=== PATIENT | male | born 1945 | race African-American/Black ===

== ENCOUNTER 2022-06-08 18:55 | Emergency (ER) | payer MEDICARE, MEDICAID ==
[~2022-06-08] VITALS: Ht 180.3 cm; Wt 73.0 kg
[~2022-06-08 18:55] MED LIST: ASPI-1497 PO; ATOR20TA65 PO; BIMA2.5D4 RIGHTEYE; BRIM10DR2 RIGHTEYE; BUDE6HFA INH; CARV6.2548 MT; DORZ10DR8 RIGHTEYE; DULO30CA52 MT; FERR324T4 MT; GABA-533 PO; LISI40TA13 MT; OXYC-662 MT; PANT40TA51 PO; TAMS-11 PO
[2022-06-08 22:03] LABS: CLARITY URINE CLEAR (CLEAR); COLOR URINE YELLOW (YELLOW); KETONES URINE NEGATIVE (NEGATIVE); LEUKOCYTE ESTERASE URINE NEGATIVE (NEGATIVE); NITRITE URINE NEGATIVE (NEGATIVE); OCCULT BLOOD URINE NEGATIVE (NEGATIVE); PH URINE 5.5 (4.5-8.0); PROTEIN URINE NEGATIVE (NEGATIVE); SPECIFIC GRAVITY URINE 1.011 (1.005-1.030)
[2022-06-08 22:38] LABS: HEMATOCRIT. 36.7 % (42.0-52.0); MEAN CORPUSCULAR HEMOGLOBIN 33.2 pg (28.0-32.0); MEAN CORPUSCULAR VOLUME 101.7 fL (80.0-94.0); MEAN PLATELET VOLUME 9.9 fl (7.4-10.4); PLATELET 94 x1000/uL (130-400); RED BLOOD CELL COUNT 3.61 mill/uL (4.7-6.1); RED CELL DISTRIBUTION WIDTH 16.1 % (11.6-14.6)
[2022-06-08 22:46] LABS: INR 1.1; PROTHROMBIN TIME 11.9 sec (9.6-11.0)
[2022-06-08 22:52] LABS: CHLORIDE 111 mEq/L (98-107)
[2022-06-08 23:14] LABS: PLATELET ESTIMATE DECREASED
[2022-06-09 07:50] VITALS: BP 155/108
[2022-06-09] MEDS ORDERED: CARVEDILOL 6.25 MG TABLET PO ONE (11:15)
== END 2022-06-09 10:50 ==
LOC: ER 18:55
DX: R53.1 Weakness (principal); I50.9 Heart failure, unspecified; E78.00 Pure hypercholesterolemia, unspecified; J44.1 Chronic obstructive pulmonary disease with (acute) exacerbation; Z00.00 Encounter for general adult medical examination without abnormal findings; Z79.899 Other long term (current) drug therapy
CPT/HCPCS: 36415; 71045; 80053; 81003; 83605; 83880; 84484; 85025; 93005; 99285